=== PATIENT | female | born 1975 | race Caucasian/White ===

== ENCOUNTER 2025-01-30 10:35 | Emergency (ER) | payer MEDICAID ==
[~2025-01-30] VITALS: Ht 170.2 cm; Wt 75.0 kg
[2025-01-30 10:42] VITALS: TEMP 98.1
[2025-01-30] MEDS: DICYCLOMINE HCL 10 MG CAPSULE PO ONE (11:11)
[2025-01-30 11:26] LABS: PLATELET COUNT (AUTO) 335 K/uL (150-450); RED BLOOD CELL COUNT(AUTO) 4.91 MIL/uL (4.00-5.20); RED CELL DISTRIBUTION WIDTH 12.4 % (11.5-14.5); WHITE BLOOD COUNT (AUTO) 9.4 K/uL (4.5-11.0)
[2025-01-30 11:41] LABS: CALCIUM, TOTAL 9.4 mg/dL (8.8-10.5); CREATININE 0.84 mg/dL (0.60-1.30); GLOMERULAR FILTR. RATE CALC > 60 mL/min (>60); GLUCOSE,RANDOM 110 mg/dL (70-110); SODIUM SERUM 140 mmol/L (136-145); UREA NITROGEN, BLOOD 9 mg/dL (7-18)
[2025-01-30 11:45] LABS: ASPARTATE AMINOTRANSFERASE 21.0 U/L (15-37); TOTAL PROTEIN, SERUM 7.7 g/dL (6.4-8.2)
[2025-01-30 11:51] LABS: TROPONIN I-HIGH SENSITIVITY Less Than 4 ng/L (<51)
[2025-01-30 12:29] LABS: APPEARANCE,URINE CLEAR (CLEAR); GLUCOSE, URINE (UA) NEGATIVE (NEGATIVE); LEUKOCYTE ESTERASE ,URINE NEGATIVE (NEGATIVE); NITRATE,URINE NEGATIVE (NEGATIVE); OCCULT BLOOD,URINE NEGATIVE (NEGATIVE); SPECIFIC GRAVITIY, URINE 1.010 (1.003-1.030)
[2025-01-30] MEDS: PB/HYOSCY/ATR/SCOP/LIDO/MAALOX 55 ML BOTTLE PO ONE (12:41)
[2025-01-30 13:00] VITALS: BP 121/82; PULSE 78; RESP 19; O2SAT 97
== END 2025-01-30 14:06 | disposition home or self-care (01) ==
LOC: EMS 10:37
DX: R10.12 Left upper quadrant pain (principal); F11.20 Opioid dependence, uncomplicated; E03.8 Other specified hypothyroidism; E78.00 Pure hypercholesterolemia, unspecified; I10 Essential (primary) hypertension; Z90.49 Acquired absence of other specified parts of digestive tract
CPT/HCPCS: 80048; 80076; 81003; 83690; 84484; 84703; 85025; 93005; 99284

== ENCOUNTER 2025-02-01 09:37 | Emergency (ER) | payer MEDICAID ==
[~2025-02-01] VITALS: Ht 165.1 cm; Wt 70.5 kg
[2025-02-01 09:39] VITALS: TEMP 97.9
[2025-02-01 09:56] LABS: COVID AG,FIA SOURCE NASAL SWAB
[2025-02-01 10:37] LABS: PLATELET COUNT (AUTO) 287 K/uL (150-450); RED BLOOD CELL COUNT(AUTO) 4.79 MIL/uL (4.00-5.20); RED CELL DISTRIBUTION WIDTH 13.0 % (11.5-14.5); WHITE BLOOD COUNT (AUTO) 15.5 K/uL (4.5-11.0)
[2025-02-01 10:40] LABS: SARS-COV2 (COVID) ANTIGEN,FIA Negative (Negative)
[2025-02-01 10:41] LABS: CALCIUM, TOTAL 8.9 mg/dL (8.8-10.5); CREATININE 0.85 mg/dL (0.60-1.30); GLOMERULAR FILTR. RATE CALC > 60 mL/min (>60); GLUCOSE,RANDOM 150 mg/dL (70-110); SODIUM SERUM 140 mmol/L (136-145); UREA NITROGEN, BLOOD 11 mg/dL (7-18)
[2025-02-01 10:42] LABS: INFLUENZA TYPE A NEGATIVE FOR TYPE A (NEGATIVE); INFLUENZA TYPE B NEGATIVE FOR TYPE B (NEGATIVE)
[2025-02-01 10:49] LABS: ASPARTATE AMINOTRANSFERASE 17.0 U/L (15-37); TOTAL PROTEIN, SERUM 8.1 g/dL (6.4-8.2)
[2025-02-01 10:57] LABS: APPEARANCE,URINE HAZY (CLEAR); GLUCOSE, URINE (UA) NEGATIVE (NEGATIVE); LEUKOCYTE ESTERASE ,URINE MODERATE (NEGATIVE); NITRATE,URINE NEGATIVE (NEGATIVE); OCCULT BLOOD,URINE TRACE (NEGATIVE); SPECIFIC GRAVITIY, URINE 1.041 (1.003-1.030)
[2025-02-01] MEDS: FAMOTIDINE 20 MG/2 ML VIAL IVP ONE (10:59)
[2025-02-01] MEDS: ACETAMINOPHEN 500 MG TABLET PO ONE (10:59)
[2025-02-01] MEDS: DEXAMETHASONE SOD PHOS 4 MG/ML VIAL IVP ONE (11:00)
[2025-02-01] MEDS: KETOROLAC TROMETHAMINE 30 MG/ML VIAL IVP ONE (11:00)
[2025-02-01] MEDS: ONDANSETRON HCL 4 MG/2 ML VIAL IVP ONE (11:00)
[2025-02-01] MEDS: SODIUM CHLORIDE 0.9% 1,000 ML IV ONE (11:01)
[2025-02-01 11:06] LABS: SQUAMOUS EPITHELIAL CELL,UR Many /LPF (None Seen)
[2025-02-01] MEDS: AMPICILLIN SODIUM/SULBACTAM NA 3 GM in SODIUM CHLORIDE 0.9% 100 ML IV ONE (11:20)
[2025-02-01] MEDS ORDERED: CEPH-558 PO (11:55)
[2025-02-01] MEDS ORDERED: AMOX-457 PO (11:55)
[2025-02-01 12:05] VITALS: BP 121/71; PULSE 98; RESP 19; O2SAT 99
[2025-02-01] MEDS: CEPHALEXIN MONOHYDRATE 500 MG CAPSULE PO ONE (12:12)
== END 2025-02-01 12:31 | disposition home or self-care (01) ==
LOC: EMS 09:38
DX: J02.0 Streptococcal pharyngitis (principal); R11.2 Nausea with vomiting, unspecified; N39.0 Urinary tract infection, site not specified; R53.1 Weakness; E78.00 Pure hypercholesterolemia, unspecified; I10 Essential (primary) hypertension; E03.8 Other specified hypothyroidism; F11.90 Opioid use, unspecified, uncomplicated; Z90.49 Acquired absence of other specified parts of digestive tract; Z20.822 Contact with and (suspected) exposure to COVID-19
CPT/HCPCS: 99285; 96365; 96375; 87426; 80048; 80076; 81001; 83690; 83735; 84703; 85025; 87086; 87430; 87804; 36415; J1885; J1100; J3490; J2405; J0295; J7030; J7050